=== PATIENT | male | born 1960 | race Caucasian/White ===

== ENCOUNTER 2023-10-13 21:29 | Emergency (ER) | payer BC ==
[2023-10-14] MEDS: Ketorolac 30 MG/ML SDV IM ONE (02:22)
== END 2023-10-13 22:35 | disposition home or self-care (01) ==
LOC: DL.ED 21:29
DX: S90.02XA Contusion of left ankle, initial encounter (principal); W01.198A Fall on same level from slipping, tripping and stumbling with subsequent striking against other object, initial encounter; Y93.89 Activity, other specified
CPT/HCPCS: 70450; 73610-LT; 99284